=== PATIENT | male | born 1965 | race Caucasian/White ===

== ENCOUNTER → 2019-10-16 | Outpatient (REF) | payer BC ==
[~2019-10-16] MED LIST: ALEV220C2 PO; LISI10TA4 PO; OXYC10TA3 PO; PROT1TAB2 PO
[2019-10-16 19:44] LABS: BLOOD UREA NITROGEN 21 MG/DL (7-18); CREATININE FOR GFR 1.13 MG/DL (0.70-1.30); GLOMERULAR FILTRATION RATE > 60.0 (>56)
== END ==
LOC: M LABNEURO 18:46
PROVIDERS: ATTEND Psychiatry & Neurology Neurology
DX: G45.9 Transient cerebral ischemic attack, unspecified (principal)

== ENCOUNTER → 2022-11-22 | Outpatient (CLI) | payer BC ==
[~2022-11-22] MED LIST changes: +LISI10TA22 PO; -LISI10TA4 PO
== END ==
LOC: M RAD 13:24
PROVIDERS: ATTEND Physician Assistant
DX: E11.51 Type 2 diabetes mellitus with diabetic peripheral angiopathy without gangrene (principal)

== ENCOUNTER → 2022-12-01 | Outpatient (CLI) | payer BC | LOC: M PLAIMG 07:17 | PROVIDERS: ATTEND Orthopaedic Surgery Hand Surgery | DX: M67.813 Other specified disorders of tendon, right shoulder (principal); M66.821 Spontaneous rupture of other tendons, right upper arm; M25.511 Pain in right shoulder ==

== ENCOUNTER → 2023-07-10 | Outpatient (CLI) | payer BC | LOC: M PLAIMG 14:41 | PROVIDERS: ATTEND Physician Assistant | DX: G43.009 Migraine without aura, not intractable, without status migrainosus (principal) ==

== ENCOUNTER → 2025-08-08 | Outpatient (CLI) | payer BC ==
[2025-08-08 17:38] LABS: CALCIUM LEVEL 8.8 MG/DL (8.3-10.6); CARBON DIOXIDE LEVEL 24.0 MMOL/L (20-31); CHLORIDE LEVEL 107.0 MMOL/L (98-107); CREATININE FOR GFR 1.26 MG/DL (0.70-1.30); GLOMERULAR FILTRATION RATE 64.5 (>49); MAGNESIUM LEVEL 1.8 MG/DL (1.8-2.4); POTASSIUM SERUM 4.6 MMOL/L (3.5-5.1); SODIUM LEVEL 137.0 MMOL/L (136-145)
== END ==
LOC: M LAB 16:22
PROVIDERS: ATTEND Physician Assistant
DX: N18.30 Chronic kidney disease, stage 3 unspecified (principal)